=== PATIENT | female | born 1960 | race Two or more races ===

== ENCOUNTER 2023-03-17 07:08 | Day surgery (SDC) | payer OTHER ==
[~2023-03-17] VITALS: Ht 149.9 cm; Wt 61.2 kg
[~2023-03-17 07:08] MED LIST: COZAAR25 MG PO; CRESTOR40 MG PO; LOVAZA1 GM PO; SYNTHROID112 MCG PO; TOPROL XL50 M1 PO
[2023-03-17] MEDS ORDERED: IBU600 MG PO (10:08)
== END 2023-03-17 14:35 | disposition home or self-care (01) ==
LOC: CIR.AMB 07:08
PROVIDERS: ATTEND Obstetrics & Gynecology Gynecology
DX: C54.1 Malignant neoplasm of endometrium (principal); N95.0 Postmenopausal bleeding; E03.9 Hypothyroidism, unspecified; I10 Essential (primary) hypertension; E78.5 Hyperlipidemia, unspecified

== ENCOUNTER → 2024-12-23 07:44 | Outpatient (CLI) | payer OTHER ==
[~2024-12-23 07:44] MED LIST changes: +IBU600 MG PO
== END | disposition home or self-care (01) ==
LOC: NUCLEAR 07:00
PROVIDERS: ATTEND Internal Medicine Hematology & Oncology
DX: C54.1 Malignant neoplasm of endometrium (principal)
CPT/HCPCS: 78815; A9552